=== PATIENT | male | born 1960 | race Caucasian/White ===

== ENCOUNTER → 2023-11-14 14:13 | Outpatient (BNVA) | payer OTHER, SELFPAY | PROVIDERS: Visit Provider Student in an Organized Health Care Education/Training Program | DX: S83.242A Other tear of medial meniscus, current injury, left knee, initial encounter; S83.281A Other tear of lateral meniscus, current injury, right knee, initial encounter; X58.XXXA Exposure to other specified factors, initial encounter | CPT/HCPCS: 99204 ==

== ENCOUNTER 2023-12-23 05:55 | Day surgery (SDC) | payer OTHER, SELFPAY ==
[2023-12-23] VITALS (10 sets, daily range): BP systolic 104–129; BP diastolic 70–88; PULSE 71–82; RESP 12–24; TEMP 36.3–36.6; O2SAT 90–95; BMI 39.0
[2023-12-23] MEDS: acetaminophen 1,000 MG/100 ML PIGGYBACK 400 MG IV (06:31)
[2023-12-23] MEDS: ketorolac 30 mg/mL INJ IVP (06:31)
--- NOTE | 2023-12-23 06:55 | W.PM.OPSFHP ---
Same Day Surgery H&P Indication for Procedure/HPI DATE OF PROCEDURE: December 23, 2023 CHIEF COMPLAINT/INDICATIONFOR SURGICAL PROCEDURE: Left knee meniscus tear PREOP DIAGNOSIS: Left knee meniscus tear PLANNED PROCEDURE: Operation Date: 12/23/23 07:00 Proposed Procedures p Knee Arthroscopy Knee Arthroscopy w/ partial Medial Menisectomy(Left) - Chong Lees DO Medications/Allergies* Home Medications Medication Instructions Recorded Confirmed Type acetaminophen 500 mg tablet 500 mg PO Q6H PRN Pain 11/14/23 12/20/23 History (Tylenol Extra Strength) fenofibrate 160 mg tablet 160 mg PO DAILY 11/14/23 12/23/23 History hydrochlorothiazide 25 mg tablet 25 mg PO DAILY 11/14/23 12/23/23 History ibuprofen 200 mg capsule 200 mg PO Q6H PRN Pain 11/14/23 12/20/23 History spironolactone 25 mg tablet 25 mg PO DAILY 11/14/23 12/23/23 History telmisartan 80 mg tablet (Micardis) 80 mg PO DAILY 11/14/23 12/23/23 History trazodone 150 mg tablet 150 mg PO BEDTIME 11/14/23 12/23/23 History amlodipine 2.5 mg tablet 2.5 mg PO BEDTIME 12/20/23 12/23/23 History Allergies/Adverse Reactions Allergy/AdvReac Type Severity Reaction Status Date / Time indomethacin Allergy unknown Uncoded 12/20/23 08:58 shellfish Allergy rash Uncoded 12/20/23 08:58 zosyn Allergy unknown Uncoded 12/20/23 08:58 Pertinent History/Comorbid Conditions* Social History Smoking and tobacco/nicotine status: never used tobacco/nicotine Alcohol intake: never Pertinent Exam Findings alert, oriented x 3, operative site marked and procedure specific exam findings Left knee: Medial and lateral joint line tenderness to palpation with a positive Pardeep's decreased range of motion secondary to pain Recommendations Surgery/Procedure today Other Plans: Plan to proceed with the OR today with left knee diagnostic and surgical arthroscopy with partial medial meniscectomy. Coding Level of Care Code Acute Code for Lorenaepifanio Keenan
[2023-12-23] MEDS: sodium chloride 0.9% 1,000 ML 30 ML IV (06:56)
[2023-12-23] MEDS: ceFAZolin 2,000 MG in sodium chloride 0.9% (plus) 50 ML 100 MG IV (07:04)
[2023-12-23] MEDS: lidocaine-epi 1% 20 mL INJ 40 ML INJECTION (07:42)
--- NOTE | 2023-12-23 08:19 | P.BOP_ITS ---
Date of Procedure: [December 23, 2023] Surgeon: [Dr. Lees DO] [place] Department Manager(s): [Yogesh Lees PA-C] Procedure(s) performed: [Right knee surgical diagnostic arthroscopy Partial medial meniscectomy Medial compartment chondroplasty Extensive synovectomy Patellofemoral chondroplasty] Findings of the procedure(s): [Right knee medial meniscus tear, medial compartment chondroplasia, synovitis and patellofemoral chondrolplasia] Estimated blood loss: [1 mL] Specimen(s) removed: [N/A] Post-operative diagnosis: [Right knee medial meniscus tear, medial compartment chondroplasia, synovitis and patellofemoral chondrolplasia]
--- NOTE | 2023-12-23 08:20 | PM.OP ---
Operative Report Date of procedure: December 23, 2023 Surgeon: Chong Lees DO Color Printer Operator: Yogesh Lees PA-C: PA was necessary for assistance in this case with leg positioning assistance with instrumentation, as well as assistance in implantation wound closure and dressing application. Procedure: Preoperative diagnosis: Left knee medial meniscus tear Left knee chondromalacia post-op diagnosis: Left knee medial meniscus tear Left knee extensive synovitis Left knee Medial and patellofemoral chondromalacia Procedure done: Left knee diagnostic and surgical arthroscopy partial medial meniscectomy Left knee diagnostic and surgical arthroscopy with extensive synovectomy of the medial lateral and patellofemoral compartments Left knee diagnostic and surgical arthroscopy with medial and patellofemoral compartment chondroplasty Surgeon: Chong Lees DO Estimated blood loss: 1mL Tourniquet: No tourniquet was used IV fluids: See anesthesia record Complications: None Findings: See operative report narrative Condition: stable Disposition: same day Brief History: Patient is a 63-year-old male with Left knee pain.? Patient has failed conservative treatment who has been worked up for Left? knee pain in the outpatient setting. MRI findings consistent with tear of the medial meniscus. talked in the office about treatment options patient would like to proceed with a Left knee diagnostic and surgical arthroscopy with partial medial meniscectomy.? Patient understand the ins and outs of the procedure the risk benefits complication alternatives to treatment options.? Understanding risk of surgery they agree to proceed with surgical intervention.? Patient understand this may not provide patient with complete symptomatic relief of? pain as patient does have some underlying arthritis.? Understanding this and patient agree to proceed with surgical intervention all questions answered. Procedure: Patient seen and evaluated in the preoperative holding area.? Consent was reviewed and signed with patient.? Correct extremity was then marked.? Patient seen evaluated Anesthesia Department once cleared for surgery patient was taken back to the operative suite.? Patient was transported onto the OR table in supine position.? All bony prominences well-padded patient was appropriate secured to the bed.? Once appropriately anesthetized a nonsterile tourniquet was applied to the Left thigh.? The Left lower extremity was then prepped and draped in standard orthopedic fashion.? Final timeout performed.? Patient received appropriate preoperative antibiotics. Patient received local anesthetic of lidocaine with epinephrine into the joint as well as around the portal sites.? No tourniquet was inflated A standard 2 portal vertical incision diagnostic and surgical arthroscopy of the Left knee was performed in standard fashion.? Small stab incision made in the inferolateral portal introduced trocar and arthroscope into the suprapatellar pouch.? Suprapatellar pouch was subsequently visualized and found to have significant synovitis but no loose bodies.? Patient had noticeable significant inflamed infrapatellar fat pad and thickening hypertrophic within the patellofemoral compartment.? ?The medial gutter was free of loose bodies I then introduced the arthroscope into the medial compartment.? Within the medial compartment I then established my inferior medial working portal utilizing spinal needle outside in technique.? Once established I then visualized our articular cartilage of the medial compartment with a valgus stress.? Patient was found to have grade 2-3 chondromalacia throughout the medial compartment.? Most pronounced grade 3 at the medial femoral condyle. Next I inspected the meniscus.? With an arthroscopic probe was utilized to visual? all aspects of the meniscus.? Meniscal root was found to be intact.? Meniscus was found to be torn posterior horn tear was a horizontal and oblique tear of the posterior horn. Not able to be repaired.? I then subsequently introduced a basket forceps as well as arthroscopic shaver to perform a partial medial meniscectomy to stable meniscal tissue and then utilized a thermal wand to anneal the edges.? Next, I then performed a synovectomy of the medial compartment.? Given patient's chondromalacia there was areas of unstable articular cartilage and I subsequently performed a chondroplasty with arthroscopic shaver and thermal wand.? This completed medial compartment work. Next a introduced the arthroscope to the intercondylar notch.? PCL and ACL were intact. patient had significant thickening of the infrapatellar fat pad spanning into the medial and lateral compartments.? I then performed an extensive synovectomy with the arthroscopic shaver of the patellofemoral medial and lateral compartments as well as the intercondylar notch. Next I introduced the arthroscope into the lateral compartment the lateral compartment was found to have grade 1-2 chondromalacia.? Lateral meniscus was found to be intact.? The root was intact.? Given the grade 1-2chondromalacia there is no unstable cartilage pieces to perform chondroplasty.? This completed my work of the lateral compartment and then performed a synovectomy of the lateral compartment.? Next of the arthroscope was placed into the lateral gutter and this was free of loose bodies.? Finally I reintroduced the arthroscope into the patellofemoral compartment.? The patellofemoral was found to have grade 2-3 chondromalacia of the patellofemoral compartment.? I utilized arthroscopic shaver as well as thermal wand to perform a patellofemoral compartment chondroplasty to stable articular tissue. At this point I utilized arthroscopic shaver as well as thermal wand to perform extensive synovectomy of the patellofemoral compartment. This completed my work of the patellofemoral space.? I then switch my portal sites to the medial working portal.? Completed the rest of my synovectomy and the rest of my examination arthroscopy was normal. All fluid was suctioned from the joint.? ?All instruments were withdrawn.? Portal sites were closed with interrupted nylon suture.? portal sites were then covered with with Xeroform 4 x 4's ABD Curlex and Harjeet wrap.? Patient was then subsequently awakened from anesthesia and taken to PACU in stable condition. Disposition: Patient taken to PACU in stable condition recovering well.? Will receive appropriate discharge structure as well as pain medication postoperatively as well as? DVT prophylaxis.we will have patient follow-up with us in the office in 2 weeks.? We will weightbearing as tolerated to the Left lower extremity.? Patient understands and agrees with current plan.? All questions answered.
--- NOTE | 2023-12-23 08:42 | PM.PACU ---
PACU note Narrative: Patient is a 63-year-old male that just underwent a left knee scope. Pt transferred to PACU in stable condition. Dressing is dry. pt is awake and alert. pt can wiggle toes and plantarflex and dorsiflex foot. pt able to perform straight leg raise, Femoral nerve intact. Distal pulses are palpable toes are warm and well-perfused. Cap refill is normal and under 2 seconds. Sensation to foot is intact. Pain is controlled. Exam: awake Disposition: discharged
--- NOTE | 2023-12-23 10:36 | ANES.PREANE2 ---
Pre-Anesthetic Assessment Height/Weight: Height 1.68 m Weight 109.769 kg Temp Pulse Resp BP Pulse Ox O2 Del Method O2 Flow Rate 98 F 72 17 118/88 95 Room Air 2 12/23/23 08:51 12/23/23 09:05 12/23/23 09:05 12/23/23 09:05 12/23/23 09:05 12/23/23 09:05 12/23/23 08:50 Preop Diagnosis: Left knee meniscus tear Operation Date: 12/23/23 07:00 Proposed Procedures p Knee Arthroscopy Knee Arthroscopy w/ partial Medial Menisectomy(Left) - Chong Lees DO Familial anesthetic complications: none Was Beta Ame taken within 24 hours: N/A Was Clonidine taken within 24 hours: N/A Last intake: Intake Last Liquid Date 12/22/23 Last Liquid Time 22:00 Last Solid Date 12/22/23 Last Solid Time 19:00 Social No alcohol and No tobacco Exam alert, oriented x 3, clear to auscultation bilaterally and regular rate & rhythm Airway Submandibular: within normal limits Cervical ROM: within normal limits Mallampati: Class II Dentition: full CV/HEM Hypertension Metabolic Morbid Obesity Anesthetic Plan ASA status: 3 Anesthesia: General Medications/Allergies Home Medications Medication Instructions Recorded Confirmed Last Taken Type acetaminophen 500 mg tablet 500 mg PO Q6H PRN Pain 11/14/23 12/20/23 Unknown History (Tylenol Extra Strength) fenofibrate 160 mg tablet 160 mg PO DAILY 11/14/23 12/23/23 12/22/23 History hydrochlorothiazide 25 mg tablet 25 mg PO DAILY 11/14/23 12/23/23 12/22/23 History ibuprofen 200 mg capsule 200 mg PO Q6H PRN Pain 11/14/23 12/20/23 Unknown History spironolactone 25 mg tablet 25 mg PO DAILY 11/14/23 12/23/23 12/22/23 History telmisartan 80 mg tablet (Micardis) 80 mg PO DAILY 11/14/23 12/23/23 12/22/23 History trazodone 150 mg tablet 150 mg PO BEDTIME 11/14/23 12/23/23 12/22/23 History amlodipine 2.5 mg tablet 2.5 mg PO BEDTIME 12/20/23 12/23/23 12/22/23 History aspirin 325 mg tablet 325 mg PO BID 2 weeks #28 tabs 12/23/23 Unknown Rx hydrocodone 5 mg-acetaminophen 325 1 tab PO Q6H PRN pain 5 days #20 12/23/23 Unknown Rx mg tablet tabs ondansetron 4 mg disintegrating 4 mg PO Q8H PRN nausea and 12/23/23 Unknown Rx tablet vomiting 3 days #9 tabs Allergies Allergy/AdvReac Type Severity Reaction Status Date / Time indomethacin Allergy unknown Uncoded 12/20/23 08:58 shellfish Allergy rash Uncoded 12/20/23 08:58 zosyn Allergy unknown Uncoded 12/20/23 08:58 PFSH Anesthesia Social History (Updated 11/14/23 @ 15:12 by Betty Whiteside LPN) Smoking and tobacco/nicotine status: never used tobacco/nicotine Alcohol intake: never Data Anesthesia Cardiac Studies: No Data to Display
--- NOTE | 2023-12-23 16:13 | ANE.PACU2 ---
Inpatient post-anesthesia follow up: Airway intact: Yes Vital signs: Temperature 98 F Pulse Rate 72 Respiratory Rate 17 Blood Pressure 118/88 Pulse Oximetry 95 Oxygen Delivery Me thod Room Air Oxygen Flow Rate 2 Fraction of Inspir ed Oxygen Hydration adequate: Yes Nausea and vomiting: No Pain level: 2 Mental status: Baseline
== END 2023-12-23 09:50 | disposition home or self-care (01) ==
PROVIDERS: PCP Nurse Practitioner; Visit Provider Student in an Organized Health Care Education/Training Program
PROC: (CPT 29870; principal; 2023-12-23 07:00)
DX: S83.242A Other tear of medial meniscus, current injury, left knee, initial encounter (principal); M94.262 Chondromalacia, left knee; S76.112A Strain of left quadriceps muscle, fascia and tendon, initial encounter; X58.XXXA Exposure to other specified factors, initial encounter; I10 Essential (primary) hypertension; E66.01 Morbid (severe) obesity due to excess calories; Z68.39 Body mass index [BMI] 39.0-39.9, adult
CPT/HCPCS: 29876; 29881; J0131; J0690; J1885; J2405; J2704; J3010; J7030

== ENCOUNTER → 2024-01-07 14:52 | Outpatient (BNVA) | payer OTHER, SELFPAY | PROVIDERS: PCP Nurse Practitioner; Visit Provider Student in an Organized Health Care Education/Training Program | DX: Z98.890 Other specified postprocedural states; S83.281D Other tear of lateral meniscus, current injury, right knee, subsequent encounter; X58.XXXD Exposure to other specified factors, subsequent encounter | CPT/HCPCS: 99024 ==